=== PATIENT | male | born 1960 | race Caucasian/White ===

== ENCOUNTER 2018-01-01 22:21 | Emergency (ER) | payer BC ==
[2018-01-02] MEDS ORDERED: oxyCODONE/Acetamin 5/325 MG* TAB PO ONE (00:48)
[2018-01-02 01:57] VITALS: BP 114/85
--- NOTE | 2018-01-02 08:23 | RAD ---
HISTORY: Right foot injury COMPARISONS: None VIEWS: 2, Frontal and lateral views of the right foreleg FINDINGS: BONE DENSITY: Normal. BONES: There is no displaced fracture. 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 ALIGNMENT: There is no dislocation. SOFT TISSUES: Unremarkable. OTHER FINDINGS: None. IMPRESSION: NO ACUTE OSSEOUS INJURY. IF SYMPTOMS PERSIST, RECOMMEND REPEAT IMAGING.
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
== END 2018-01-02 01:50 | disposition home or self-care (01) ==
LOC: ED 22:21
DX: S90.01XA Contusion of right ankle, initial encounter (principal); W20.8XXA Other cause of strike by thrown, projected or falling object, initial encounter; Y93.89 Activity, other specified; Y92.89 Other specified places as the place of occurrence of the external cause; Z87.891 Personal history of nicotine dependence
CPT/HCPCS: 99282; A9270-GY

== ENCOUNTER 2018-11-05 22:59 | Emergency (ER) | payer BC ==
--- NOTE | 2018-11-06 00:55 | ED ---
Headache - HPI Summary HPI Summary: A 57 y/o M presents to ED with c/o of gradual-onset and constant BUTIRAGO onset two days ago. BUITRAGO is located as base of skull and behind his eyes. He's tried Ibuprofen, Tylenol extra strength to no relief. Associated sx: neck pain, bulging veins on R side of head, photophobia, general fatigue, fever approx 100 F yesterday. Denies any other vision changes, n/v, gait changes, speech changes. He's had migraines in the past and feels these sx are similar. PMHx: HTN. Denies DM, CA, respiratory dz. - History Of Current Complaint Chief Complaint: EDHeadache Stated Complaint: HEADACHE/SWOLLEN VAIN ON FOREHEAD PER PT Time Seen by Provider: 11/06/18 00:49 Hx Obtained From: Patient, Family/Coding Compliance Specialist - Onset/Duration: Gradual Onset, Started days ago, Still Present Initially Headache Was: Moderate Currently Pain Is: Severe Timing: Constant Location of Headache: Other: - base of skull, behind eyes Aggravating Factor: Bright Lights Associated Signs And Symptoms: Fever, Neck Pain, Visual Changes - photophobia, Other (Noted In Comments) - pos: bulging veins on R side of head, photophobia, general fatigue. Neg: other vision changes, n/v, gait changes, speech changes - Allergies/Home Medications Allergies/Adverse Reactions: Allergies Allergy/AdvReac Type Severity Reaction Status Date / Time No Known Allergies Allergy Verified 11/05/18 23:23 PMH/Surg Hx/FS Hx/Imm Hx Previously Healthy: Yes Endocrine/Hematology History: Denies: Hx Diabetes, Hx Anemia Cardiovascular History: Reports: Hx Hypertension Denies: Hx Pacemaker/ICD Respiratory History: Denies: Hx Asthma GI History: Reports: Other GI Disorders - diverticulitis Denies: Hx Jaundice History: Reports: Hx Kidney Stones Denies: Hx Dialysis, Hx Renal Disease Sensory History: Denies: Hx Hearing Aid Neurological History: Reports: Hx Headaches Psychiatric History: Denies: Hx Panic Disorder - Surgical History Surgery Procedure, Year, and Place: BILATERAL KIDNEY STONE SURGERY 2011. Rhinoplasty 1984. Tonsillectomy at age 3. Bone spur removed from shoulder 2004. Bilateral carpal tunnel surgeries 2002 Infectious Disease History: No Infectious Disease History: Denies: History Other Infectious Disease, Traveled Outside the [place] in Last 30 Days - Family History Known Family History: Positive: Hypertension, Other - pos: grandfather - aneurysm - Social History Occupation: Employed Full-time Lives: With Family Alcohol Use: None Hx Substance Use: No Substance Use Type: Reports: None Hx Tobacco Use: Yes Smoking Status (MU): Former Smoker Type: Cigarettes Amount Used/How Often: 1ppd Length of Time of Smoking/Using Tobacco: appx 30yrs (on/off) Have You Smoked in the Last Year: No Review of Systems Positive: Fever, Fatigue Positive: Photophobia. Negative: Blurred Vision, Diplopia, Drainage, Erythema Cardiovascular: Other - pos: vein bulging on R side of scalp Negative: Vomiting, Nausea Musculoskeletal: Other - pos: neck pain Neurological: Other - neg: gait changes Positive: Headache. Negative: Slurred Speech All Other Systems Reviewed And Are Negative: Yes Physical Exam - Summary Physical Exam Summary: Appearance: Well-appearing, Well-nourished, lying in bed comfortably. Visible vein on R side of forehead that is non-tender. Skin: Warm, dry, no obvious rash Eyes: sclera anicteric, no conjunctival pallor ENT: mucous membranes moist, pharynx appears normal Neck: Supple, nontender. There are no meningeal signs. Respiratory: Clear to auscultation, no signs of respiratory distress Cardiovascular: Normal S1, S2. No murmurs. Normal distal pulses in tibial and radial bilaterally. Abdomen: Soft, nontender, normal active bowel sounds present Musculoskeletal: Normal, Strength/ROM Intact Neurological: A&Ox3, awake and alert, mentation is normal, speech is fluent and appropriate Psychiatric: affect is normal, does not appear anxious or depressed Triage Information Reviewed: Yes Vital Signs On Initial Exam: Initial Vitals Temp Pulse Resp BP Pulse Ox 98.6 F 65 16 134/95 98 11/05/18 23:15 11/05/18 23:15 11/05/18 23:15 11/05/18 23:15 11/05/18 23:15 Vital Signs Reviewed: Yes Diagnostics - Vital Signs Vital Signs Temp Pulse Resp BP Pulse Ox 11/05/18 23:15 98.6 F 65 16 134/95 98 - Laboratory Lab Statement: Any lab studies that have been ordered have been reviewed, and results considered in the medical decision making process. Re-Evaluation - Re-Evaluation 1 Re-Evaluation Time: 02:14 Change: Improved Comment: Discussing CRP result with pt and plans to DC Headache Course/Dx - Course Course Of Treatment: Pt is a 57 y/o M presenting with gradual-onset and constant BUITRAGO onset two days ago, located at the base of skull and behind his eyes. Associated sx: neck pain, bulging veins on R side of head, photophobia, general fatigue, fever approx 100 F yesterday. Denies any other vision changes, n/v, gait changes, speech changes. CRP is WNL. Will D/C home. - Diagnoses Differential Diagnosis/HQI/PQRI: Meningitis, Migraine, Temporal Arteritis, Tension Headache Provider Diagnoses: Migraine headache Discharge - Sign-Out/Discharge Documenting (check all that apply): Patient Departure - D/C Patient Received Moderate/Deep Sedation with Procedure: No - Discharge Plan Condition: Good Disposition: HOME Patient Education Materials: Migraine Headache (ED) Referrals: Rosy Silveira MD [Primary Care Provider] - Additional Instructions: Your blood test was normal, so this does not look like a serious diagnosis like temporal arteritis. Continue home treatment for migraine as you are doing - Billing Disposition and Condition Condition: GOOD Disposition: Home - Attestation Statements Document Initiated by Scribe: Yes Documenting Scribe: Flori Camarillo Provider For Whom Kenney is Documenting (Include Credential): Dr. Zhang Will MD Scribe Attestation: Flori Urena, scribed for Dr. Zhang Will MD on 11/06/18 at 0352. Scribe Documentation Reviewed: Yes Provider Attestation: The documentation as recorded by the Flori robison accurately reflects the service I personally performed and the decisions made by me, Dr. Zhang Will MD Status of Scribe Document: Viewed
[2018-11-06 02:21] VITALS: BP 128/88
== END 2018-11-06 01:43 | disposition home or self-care (01) ==
LOC: ED 22:59
DX: G43.909 Migraine, unspecified, not intractable, without status migrainosus (principal); R50.9 Fever, unspecified; R53.83 Other fatigue; I10 Essential (primary) hypertension; Z87.891 Personal history of nicotine dependence
CPT/HCPCS: 36415; 86140; 99281